=== PATIENT | male | born 1985 | race Caucasian/White ===

== ENCOUNTER 2020-06-02 10:59 | Emergency (ER) | payer BC ==
[~2020-06-02] VITALS: Ht 175.3 cm; Wt 61.3 kg
[~2020-06-02 10:59] MED LIST: METH-37 PO; TRAM-48 PO
[2020-06-02 11:11] VITALS: BP 130/88
[2020-06-02] MEDS ORDERED: KETOROLAC 60 MG/2 ML VIAL. IM ONE (12:15)
--- NOTE | 2020-06-02 12:29 | RAD ---
PROCEDURE: SHOULDER 2+V LEFT STUDY DATE: 06/02/2020 CLINICAL INDICATION / HISTORY: Reason: BLUNT TRAUMA INJURY TO ANTERIOR ASPECT, PAIN / Spl. Instructions: / History: . TECHNIQUE: AP internal and external rotation views with a Y- view were obtained. COMPARISON: None FINDINGS: No fracture, dislocation or bone destruction is identified. There are no degenerative changes at the left AC joint. No calcifications are seen in relation to the rotator cuff insertion. IMPRESSION: No acute osseous abnormality Electronically signed by: Kendra Martinez MD (06/02/2020 12:25 PM) [id number]
--- NOTE | 2020-06-02 12:54 | PHYS DOC ---
Past Medical History Past Medical History: No Pertinent History, Hypothyroid Past Surgical History: Other Additional Past Surgical Histo: NASAL SURG Smoking Status: Current Every Day Smoker Alcohol Use: None Drug Use: None General Adult EDM: Chief Complaint: SHOULDER INJURY HPI: HPI: Patient is a 34 year old male who presents with complaints of left shoulder pain that started this morning. Patient states his pain is a 8/10 on a 1-10 pain scale. 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 Patient states that he initially had some pain but it went away, patient states he went to work yesterday and worked all day and thinks he overdid it because when he woke up this morning he had pain in his shoulder that prevented him from going to work. Patient denies any fever or chills, patient denies any COVID-19 concerns and does not wish to be tested today. Patient denies any visual changes, nasal congestion cough or shortness of breath. Patient denies any pain to his chest or any swelling of his extremities. Patient denies any abdominal pain, nausea, vomiting, diarrhea, or constipation. Patient denies any problems urinating. Patient denies any back pain or pain in his joints other than his left shoulder. Patient denies any skin rashes, headaches, focal weaknesses, or sensory changes. Patient denies any numbness or tingling to his left upper extremity, patient denies any muscular weakness or loss of range of movement to his left upper extremity specifically his left shoulder. Patient denies any swelling of his glands. Patient denies any recent depressions or anxieties, patient denies any HI or SI. Review of Systems: Review of Systems: Constitutional: Denies fever or chills. Eyes: Denies change in visual acuity. HENT: Denies nasal congestion or sore throat. Respiratory: Denies cough or shortness of breath. Cardiovascular: Denies chest pain or edema. GI: Denies abdominal pain, nausea, vomiting, or diarrhea. : Denies dysuria. Musculoskeletal: Denies back pain or joint pain other than to the left shoulde r joint. Integument: Denies rash. Neurologic: Denies headache, focal weakness or sensory changes. Lymphatic: Denies swollen glands. Psychiatric: Denies depression or anxiety. Denies HI or SI. Heart Score: Risk Factors: Risk Factors: DM, Current or recent (<one month) smoker, HTN, HLP, family history of CAD, obesity. Risk Scores: Score 0 - 3: 2.5% MACE over next 6 weeks - Discharge Home Score 4 - 6: 20.3% MACE over next 6 weeks - Admit for Clinical Observation Score 7 - 10: 72.7% MACE over next 6 weeks - Early Invasive Strategies Family History: Family History: Patient denies any family history significant to this ER visit today. Current Medications: Patient states he does not take any prescription medications nor [id number] medications at home. Current Medications Medications (Trade) Dose Ordered Sig/Hal Start Time Stop Time Status Last Admin Dose Admin Ketorolac Tromethamine (Toradol Im) 60 mg 1X ONCE 06/02/20 12:15 06/02/20 12:16 DC 06/02/20 12:09 60 MG Allergies: Allergies: Patient denies seasonal allergies. Allergies Coded Allergies Type Severity Reaction Last Updated Verified Penicillins Allergy Intermediate 03/02/16 Yes Uncoded Allergies Type Severity Reaction Last Updated Verified PROCESSED FISH Allergy Mild "I BREAK OUT" 03/02/16 Physical Exam: PE: Constitutional: Well developed, well nourished, no acute distress, non-toxic appearance. [] HENT: Normocephalic, atraumatic, bilateral external ears normal, oropharynx moist, no oral exudates, nose normal. [] Eyes: PERRLA, EOMI, conjunctiva normal, no discharge. [] Neck: Normal range of motion, no tenderness, supple, no stridor. [] Cardiovascular:Heart rate regular rhythm, no murmur [] Lungs & Thorax: Bilateral breath sounds clear to auscultation [] Abdomen: Bowel sounds normal, soft, no tenderness, no masses, no pulsatile masses. [] Skin: Warm, dry, no erythema, no rash. [] Back: No tenderness, no CVA tenderness. [] Extremities: No tenderness, no cyanosis, no clubbing, ROM intact, no edema. [] Neurologic: Alert and oriented X 3, normal motor function, normal sensory function, no focal deficits noted. [] Psychologic: Affect normal, judgement normal, mood normal. [] Current Patient Data: Vital Signs: Vital Signs Date Time Temp Pulse Resp B/P (MAP) Pulse Ox O2 Delivery O2 Flow Rate FiO2 06/02/20 11:11 98.8 77 20 130/88 (102) 99 Room Air 98.8 EKG: EKG: [] Radiology/Procedures: Radiology/Procedures: PATIENT: JOSE MORA ACCOUNT: [id number] : 1985 LOCATION: ER AGE: 34 SEX: M EXAM STATUS: REG ER ORD. PHYSICIAN: DALILA XIAO APRN REASON: BLUNT TRAUMA INJURY TO ANTERIOR ASPECT, PAIN PROCEDURE: SHOULDER 2+V LEFT PROCEDURE: SHOULDER 2+V LEFT STUDY DATE: 06/02/2020 CLINICAL INDICATION / HISTORY: Reason: BLUNT TRAUMA INJURY TO ANTERIOR ASPECT, PAIN / Spl. Instructions: / History: . TECHNIQUE: AP internal and external rotation views with a Y- view were obtained. COMPARISON: None FINDINGS: No fracture, dislocation or bone destruction is identified. There are no degenerative changes at the left AC joint. No calcifications are seen in relation to the rotator cuff insertion. IMPRESSION: No acute osseous abnormality Electronically signed by: Kan Gallo MD (06/02/2020 12:25 PM) [id number] DICTATED and SIGNED BY: KAN GALLO MD DATE: 06/02/20 1225 Course & Med Decision Making: Course & Med Decision Making Pertinent Labs and Imaging studies reviewed. (See chart for details) 34-year-old male patient presented to the emergency department with left shoulder pain stating that he was struck by a tree limb to the left shoulder while doing tree work this past Monday 4 days ago. Patient states he initially had pain but it went away without taking any tjmp-pxu-qvyauvm pain medications or therapies such as ice or heat. Patient states that he felt fine and thinks he probably over work to his left shoulder yesterday because today when he woke up he was unable to go to work related to his left shoulder pain. Patient specifically points to the anterior part of her shoulder. Patient denies any shoulder blade pain lateral or superior aspect shoulder pain. Patient is requesting a work excuse so that he may recover. Patient's physical examination focused left shoulder full passive range of motion without noting any bony crepitus or deformity. Patient denied any numbness or tingling to his left extremity, patient denied any radiation of his left anterior shoulder pain. Patient has full active range of motion although complains of pain while doing this. There is no swelling to the left shoulder. Related to his pain, a left shoulder x-ray was performed and read negative by the facilities radiologist. Discussed findings with patient, discussed plans with patient to send home with prescription for 10 mg Flexeril muscle relaxer and 600 mg Motrin for pain, also advised patient to use ice packs 30 minutes on and 30 minutes off while awake. Patient will be given a work excuse for the remainder of the week. Patient was satisfied with this plan, gave verbal understanding of home care and use of prescription medications. Patient gave verbal understanding of return to emergency department concerns, patient had no further questions or concerns. Patient discharged home without incident. Toron Disclaimer: Yumiko Disclaimer: This electronic medical record was generated, in whole or in part, using a voice recognition dictation system. Departure Departure Impression: Primary Impression: Contusion of shoulder, left Disposition: HOME, SELF-CARE Condition: GOOD Referrals: NO PCP (PCP) Patient Instructions: Shoulder Joint Replacement, Care After Additional Instructions: Please take prescribed medications as directed, follow-up with your primary care doctor if symptoms do not improve, you will be given a work excuse for Monday and Monday, use ice packs to your shoulder 30 minutes on and 30 minutes off while awake over the next 48 hours. Return to the emergency department for any further concerns or worsening symptoms. Scripts Cyclobenzaprine Hcl (CYCLOBENZAPRINE HCL) 10 Mg Tablet 10 MG PO TID, #12 TAB 0 Refills Prov: DALILA XIAO APRN 06/02/20 Ibuprofen (IBUPROFEN) 600 Mg Tablet 600 MG PO PRN Q6HRS PRN for INFLAMMATION, #20 TAB 0 Refills Prov: DALILA XIAO APRN 06/02/20 DALILA XIAO APRN Jun 02, 2020 12:54
[2020-06-02] MEDS ORDERED: CYCL10TA2 PO (13:30)
[2020-06-02] MEDS ORDERED: IBUP-1007 PO (13:30)
== END 2020-06-02 13:55 | disposition home or self-care (01) ==
LOC: ER 10:59
DX: S40.012A Contusion of left shoulder, initial encounter (principal); E03.9 Hypothyroidism, unspecified; F17.200 Nicotine dependence, unspecified, uncomplicated; Z88.0 Allergy status to penicillin; Z91.013 Allergy to seafood; W22.8XXA Striking against or struck by other objects, initial encounter; Y93.89 Activity, other specified; Y92.89 Other specified places as the place of occurrence of the external cause; Y99.8 Other external cause status
CPT/HCPCS: 73030; 96372; 99283; J1885

== ENCOUNTER 2021-03-15 09:37 | Emergency (ER) | payer BC ==
[~2021-03-15] VITALS: Ht 175.3 cm; Wt 65.6 kg
[~2021-03-15 09:37] MED LIST changes: +CYCL10TA2 PO; +IBUP-1007 PO
[2021-03-15] MEDS ORDERED: PRED50TA PO (11:53)
[2021-03-15] MEDS ORDERED: BENZ100C PO (11:53)
--- NOTE | 2021-03-15 11:53 | PHYS DOC ---
Past Medical History Past Medical History: No Pertinent History, Hypothyroid Past Surgical History: Other Additional Past Surgical Histo: NASAL SURG Smoking Status: Current Every Day Smoker Additional Information: 0.5 PPD Alcohol Use: None Drug Use: None General Adult EDM: Chief Complaint: SORE THROAT HPI: HPI: Patient is a 35 year old male who presents to the ED today complaining of a sor e throat for 1 week and cough for 4 days. Patient denies any fever. Denies any shortness of breath. Review of Systems: Review of Systems: Constitutional: Denies fever or chills. [] Eyes: Denies change in visual acuity. [] HENT: Reports sore throat. Denies nasal congestion Respiratory: Reports cough, denies shortness of breath. [] Cardiovascular: Denies chest pain or edema. [] GI: Denies abdominal pain, nausea, vomiting, bloody stools or diarrhea. [] : Denies dysuria. [] Musculoskeletal: Denies back pain or joint pain. [] Integument: Denies rash. [] Neurologic: Denies headache, focal weakness or sensory changes. [] Psychiatric: Denies depression or anxiety. [] Heart Score: C/O Chest Pain: N/A Risk Factors: Risk Factors: DM, Current or recent (<one month) smoker, HTN, HLP, family history of CAD, obesity. Risk Scores: Score 0 - 3: 2.5% MACE over next 6 weeks - Discharge Home Score 4 - 6: 20.3% MACE over next 6 weeks - Admit for Clinical Observation Score 7 - 10: 72.7% MACE over next 6 weeks - Early Invasive Strategies Allergies: Allergies: Allergies Coded Allergies Type Severity Reaction Last Updated Verified Penicillins Allergy Intermediate 03/02/16 Yes Uncoded Allergies Type Severity Reaction Last Updated Verified PROCESSED FISH Allergy Mild "I BREAK OUT" 03/02/16 Physical Exam: PE: Constitutional: Well developed, well nourished, no acute distress, non-toxic appearance. [] HENT: Normocephalic, atraumatic, bilateral external ears normal, oropharynx moist, no oral exudates, nose normal. [] Eyes: PERRLA, EOMI, conjunctiva normal, no discharge. [] Neck: Normal range of motion, no tenderness, supple, no stridor. [] Cardiovascular:Heart rate regular rhythm, no murmur [] Lungs & Thorax: Bilateral breath sounds clear to auscultation [] Abdomen: Bowel sounds normal, soft, no tenderness, no masses, no pulsatile masses. [] Skin: Warm, dry, no erythema, no rash. [] Back: No tenderness, no CVA tenderness. [] Extremities: No tenderness, no cyanosis, no clubbing, ROM intact, no edema. [] Neurologic: Alert and oriented X 3, normal motor function, normal sensory function, no focal deficits noted. [] Psychologic: Affect normal, judgement normal, mood normal. [] Current Patient Data: Vital Signs: Vital Signs Date Time Temp Pulse Resp B/P (MAP) Pulse Ox O2 Delivery O2 Flow Rate FiO2 03/15/21 10:50 98.3 64 16 128/86 (102) 98 Room Air 98.3 EKG: EKG: [] Radiology/Procedures: Radiology/Procedures: [] Course & Med Decision Making: Course & Med Decision Making Pertinent Labs and Imaging studies reviewed. (See chart for details) This is a 35-year-old male patient presented to the ED today to be evaluated for sore throat for 1 week and cough for 4 days. Patient is unvaccinated for COVID-19. Negative rapid strep, COVID-19 test pending. Supportive care measures provided. Yumiko Disclaimer: Yumiko Disclaimer: This electronic medical record was generated, in whole or in part, using a voice recognition dictation system. Departure Departure Impression: Primary Impression: Person under investigation for COVID-19 Additional Impressions: Pharyngitis, acute Qualified Codes: J02.9 - Acute pharyngitis, unspecified Cough Disposition: HOME / SELF CARE / HOMELESS Condition: STABLE Referrals: NO PCP (PCP) follow up with your doctor in one week Patient Instructions: Cough, Adult, Frir-gb-[id number], Viral Pharyngitis Additional Instructions: You were evaluated in the emergency room for sore throat and cough. Your Covid test is pending. Quarantine yourself until results are back. Scripts Prednisone (PREDNISONE) 50 Mg Tablet 1 TAB PO DAILY, #5 TAB Prov: LUDMILA MTZ MANAGED CARE MANAGER 03/15/21 Benzonatate (TESSALON PERLE) 100 Mg Capsule 1 CAP PO TID, #30 CAP Prov: LUDMILA MTZ MANAGED CARE MANAGER 03/15/21 LUDMILA MTZ APRN Mar 15, 2021 11:53
[2021-03-15 12:36] VITALS: BP 124/78
--- NOTE | 2021-03-16 09:29 | NUR ---
IP: Informed pt of negative covid test. Pt verbalized understanding.
== END 2021-03-15 12:38 | disposition home or self-care (01) ==
LOC: ER 09:37
DX: J02.9 Acute pharyngitis, unspecified (principal); Z20.822 Contact with and (suspected) exposure to COVID-19; R05 Cough; E03.9 Hypothyroidism, unspecified; F17.200 Nicotine dependence, unspecified, uncomplicated; Z88.0 Allergy status to penicillin; Z91.013 Allergy to seafood
CPT/HCPCS: 87070; 87426; 87880; 99283; U0003; U0005